=== PATIENT | female | born 1985 | race Caucasian/White ===

== ENCOUNTER 2017-05-17 08:21 | Emergency (ER) | payer MEDICAID ==
[~2017-05-17] VITALS: Ht 160 cm; Wt 75.3 kg
[2017-05-17 08:27] VITALS: Ht 160 cm; Wt 75.3 kg
[2017-05-17 09:22] VITALS: BP 112/78
== END 2017-05-17 09:22 | disposition home or self-care (01) ==
LOC: ED 08:21
DX: N83.8 Other noninflammatory disorders of ovary, fallopian tube and broad ligament (principal)
CPT/HCPCS: J1885